=== PATIENT | male | born 1965 | race Two or more races ===

== ENCOUNTER 2025-04-20 13:33 | Emergency (ER) | payer OTHER ==
[~2025-04-20] VITALS: Ht 165.1 cm; Wt 95.7 kg
[2025-04-20] MEDS ORDERED: DEXAMETHASONE SODIUM PHOSPHATE 4 MG/ML VIAL IM STA (13:49)
[2025-04-20] MEDS ORDERED: CEFTRIAXONE SODIUM 1,000 MG VIAL IM STA (13:49)
[2025-04-20] MEDS ORDERED: DIPHTH,PERTUSS(ACELL),TET VAC 0.5 ML SYRINGE IM ONE (14:00)
== END 2025-04-20 15:03 | disposition home or self-care (01) ==
LOC: ER 13:34
DX: S61.223A Laceration with foreign body of left middle finger without damage to nail, initial encounter (principal); W26.0XXA Contact with knife, initial encounter; Y93.G3 Activity, cooking and baking; Y92.010 Kitchen of single-family (private) house as the place of occurrence of the external cause
CPT/HCPCS: 12002; 90471; 90714; J1670

== ENCOUNTER 2025-04-28 19:24 | Emergency (ER) | payer OTHER ==
[~2025-04-28] VITALS: Ht 165.1 cm; Wt 95.7 kg
[2025-04-28] MEDS ORDERED: CEFTRIAXONE SODIUM 1,000 MG VIAL IM STA (21:01)
[2025-04-28] MEDS ORDERED: CEFTRIAXONE SODIUM 1,000 MG VIAL ONE (21:22)
== END 2025-04-28 21:48 | disposition home or self-care (01) ==
LOC: ER 19:25
DX: Z48.02 Encounter for removal of sutures (principal); T81.41XA Infection following a procedure, superficial incisional surgical site, initial encounter; L08.9 Local infection of the skin and subcutaneous tissue, unspecified

== ENCOUNTER 2025-05-05 17:44 | Emergency (ER) | payer OTHER ==
[~2025-05-05] VITALS: Ht 165.1 cm; Wt 95.3 kg
[2025-05-05 18:32] VITALS: BP 124/78; O2SAT 98
== END 2025-05-05 18:32 | disposition left against medical advice (07) ==
LOC: ER 17:45
DX: Z53.21 Procedure and treatment not carried out due to patient leaving prior to being seen by health care provider (principal)